=== PATIENT | male | born 1980 ===

== ENCOUNTER 2022-07-04 06:02 | Day surgery (SDC) | payer OTHER ==
[~2022-07-04] VITALS: Ht 177.8 cm; Wt 59.1 kg
[~2022-07-04 06:02] MED LIST: HYDACE5 PO
--- NOTE | 2022-07-04 07:56 | NUR ---
07/04/22 0756 Sallie Daly 1 MG EPI ADDED TO THE FIRST BAG OF LR PER ORDER, FOR IRRIGATION AT OPSITE BY DR WALSH. ROPIVACAINCE 0.5% 30 MLS MIXED W/ EPI 0.15 ML (1MG/ ML) PER ORDER TO MAKE ROPIVACAINE 0.5% 1:200,000 FOR INJECTION AT OPSITE.
--- NOTE | 2022-07-04 09:56 | NUR ---
07/04/22 0956 Christina Carmona PATIENT UP IN RECLINER. PAIN TOLERABLE AT 10 IN LLE. C/O NAUSEA. ZOFRAN 4MG IV X 1 ADMINISTERED NOW.
== END 2022-07-04 11:00 | disposition home or self-care (01) ==
LOC: ORSCSDS 06:02
PROVIDERS: Orthopaedic Surgery
PROC: 0SQD4ZZ Repair Left Knee Joint, Percutaneous Endoscopic Approach (ICD-10-PCS; principal; 2022-07-04 07:30)
DX: S83.212A Bucket-handle tear of medial meniscus, current injury, left knee, initial encounter (principal); Y93.44 Activity, trampolining
CPT/HCPCS: C1713; J0171; J0690; J1100; J2250; J2405; J2704; J2765; J2795; J3010; J7120